=== PATIENT | male | born 1960 | race African-American/Black ===

== ENCOUNTER 2022-05-24 22:12 | Inpatient (IN) | payer MEDICAID ==
[~2022-05-24] VITALS: Ht 172.7 cm; Wt 81.9 kg
[2022-05-24] MEDS ORDERED: FUROSEMIDE 40MG/4ML VIAL IV ONE (22:30)
[2022-05-24] MEDS ORDERED: NITROGLYCERIN OINT 1GM/INCH UDPKT TD ONE (22:30)
[2022-05-24 22:56] LABS: BASOPHILS % 0.5 % (0.0-2.0); HEMATOCRIT. 32.9 % (42.0-52.0); HEMOGLOBIN. 11.3 g/dL (14.0-18.0); LYMPHOCYTES % 22.7 % (20.0-50.0); MEAN CORPUSCULAR HEMOGLOBIN 30.9 pg (28.0-32.0); MEAN CORPUSCULAR VOLUME 89.6 fL (80.0-94.0); MONOCYTES % 8.6 % (2.0-8.0); NEUTROPHILS % 65.2 % (40.0-76.0); PLATELET 230 x1000/uL (130-400); RED BLOOD CELL COUNT 3.67 mill/uL (4.7-6.1); RED CELL DISTRIBUTION WIDTH 15.2 % (11.6-14.6)
[2022-05-24 23:00] LABS: CHLORIDE 107 mEq/L (98-107)
[2022-05-25] MEDS ORDERED: ASPIRIN 325MG TABLET PO ONE (02:00)
[2022-05-25] MEDS ORDERED: ENOXAPARIN 80MG/0.8ML SYR SUBCUT ONE (02:00)
[2022-05-25] MEDS ORDERED: HYDROCODONE/ACETAMINOPHEN 7.5/325MG TABLET PO PRN (05:30)
[2022-05-25] MEDS ORDERED: ACETAMINOPHEN 325MG TABLET PO PRN ×2 (05:30)
[2022-05-25] MEDS ORDERED: IPRATROPIUM/ALBUTEROL 0.5-3(2.5)MG/3ML NEB HHN PRN (05:30)
[2022-05-25] MEDS ORDERED: ONDANSETRON HCL 4MG/2ML INJ IV PRN (05:30)
[2022-05-25] MEDS ORDERED: CLONIDINE 0.1MG TABLET PO PRN (05:30)
[2022-05-25] MEDS ORDERED: IPRATROPIUM/ALBUTEROL 0.5-3(2.5)MG/3ML NEB HHN SCH (06:15)
[2022-05-25] MEDS ORDERED: TICAGRELOR 90 MG TABLET PO SCH (09:00)
[2022-05-25] MEDS ORDERED: METOPROLOL TARTRATE 25MG TABLET PO SCH (09:00)
[2022-05-25 09:18] LABS: BG BASE EXCESS 3.5 mmol/L (-2.0-2.0); BG CARBOXYHEMOGLOBIN 2.6 % (0.5-1.5); BG DEOXYHEMOGLOBIN 0.9 % (0.0-5.0); BG FRACTION INSPIRED OXYGEN 40; BG HCO3 ACT 28.5 mmol/L (22.0-26.0); BG METHEMOGLOBIN 0.3 % (0.0-1.5); BG OXYGEN SATURATION 99.1 % (92.0-98.5); BG OXYHEMOGLOBIN 96.2 % (94.0-97.0); BG PCO2 44.6 mmHg (35.0-45.0); BG PH 7.423 (7.350-7.450); BG SAMPLE SITE RIGHT RADIAL; BG TOTAL HEMOGLOBIN 11.5 g/dL (12.0-18.0); BG VENT MODE NASAL CANNULA
[2022-05-25] MEDS: ASPIRIN 81MG TABLET PO SCH (09:33)
[2022-05-25] MEDS: FUROSEMIDE 40MG/4ML VIAL IVP SCH ×2 (09:33→17:00)
[2022-05-25] MEDS: LOSARTAN POTASSIUM 25 MG TABLET PO SCH (09:33)
[2022-05-25 10:24] LABS: CLARITY URINE CLEAR (CLEAR); COLOR URINE YELLOW (YELLOW); KETONES URINE NEGATIVE (NEGATIVE); LEUKOCYTE ESTERASE URINE NEGATIVE (NEGATIVE); NITRITE URINE NEGATIVE (NEGATIVE); OCCULT BLOOD URINE NEGATIVE (NEGATIVE); PH URINE 8.5 (4.5-8.0); PROTEIN URINE NEGATIVE (NEGATIVE)
[2022-05-25] MEDS: TICAGRELOR 90 MG TABLET PO SCH ×2 (10:28→17:00)
[2022-05-25 11:21] LABS: *AMPHETAMINES SCREEN URINE NEGATIVE (NEGATIVE); *BARBITURATES SCREEN URINE NEGATIVE (NEGATIVE); *BENZODIAZEPINES SCREEN URINE NEGATIVE (NEGATIVE); *COCAINE SCREEN URINE PRESUMTIVE POSITIVE (NEGATIVE); CANNABINOID URINE SCREEN NEGATIVE (NEGATIVE); METHADONE URINE SCREEN NEGATIVE (NEGATIVE); OPIATES URINE SCREEN NEGATIVE (NEGATIVE); PHENCYCLIDINE URINE SCREEN NEGATIVE (NEGATIVE)
[2022-05-25 12:22] LABS: CHLORIDE 108 mEq/L (98-107)
[2022-05-25] MEDS: METHYLPREDNISOLONE SOD SUCC 125 MG/2 ML VIAL IV SCH ×2 (15:07→22:42)
[2022-05-25] MEDS: FAMOTIDINE 20MG TABLET PO SCH (22:42)
[2022-05-25] MEDS: ATORVASTATIN CALCIUM 40MG TABLET PO SCH (22:42)
[2022-05-26] MEDS: METHYLPREDNISOLONE SOD SUCC 125 MG/2 ML VIAL IV SCH ×3 (06:58→22:00)
[2022-05-26 08:45] LABS: BG BASE EXCESS 5.7 mmol/L (-2.0-2.0); BG CARBOXYHEMOGLOBIN 0.4 % (0.5-1.5); BG DEOXYHEMOGLOBIN 2.7 % (0.0-5.0); BG METHEMOGLOBIN 0.3 % (0.0-1.5); BG OXYGEN SATURATION 97.3 % (92.0-98.5); BG OXYHEMOGLOBIN 96.6 % (94.0-97.0); BG PCO2 47.8 mmHg (35.0-45.0); BG PO2 99.5 mmHg (75.0-100.0); BG SAMPLE SITE RIGHT RADIAL; BG TOTAL HEMOGLOBIN 12.8 g/dL (12.0-18.0); BG VENT MODE NASAL CANNULA
[2022-05-26] MEDS: FUROSEMIDE 40MG/4ML VIAL IVP SCH ×2 (09:00→17:00)
[2022-05-26] MEDS: ASPIRIN 81MG TABLET PO SCH (09:00)
[2022-05-26] MEDS: TICAGRELOR 90 MG TABLET PO SCH ×2 (09:00→17:00)
[2022-05-26] MEDS: LOSARTAN POTASSIUM 25 MG TABLET PO SCH (09:00)
[2022-05-26] MEDS: ENOXAPARIN 40MG/0.4ML SYR SUBCUT SCH (09:00)
[2022-05-26 12:11] LABS: HEMATOCRIT. 37.7 % (42.0-52.0); HEMOGLOBIN. 12.6 g/dL (14.0-18.0); MEAN CORPUSCULAR HEMOGLOBIN 30.3 pg (28.0-32.0); MEAN CORPUSCULAR VOLUME 90.8 fL (80.0-94.0); MEAN PLATELET VOLUME 7.8 fl (7.4-10.4); PLATELET 245 x1000/uL (130-400); RED BLOOD CELL COUNT 4.16 mill/uL (4.7-6.1); RED CELL DISTRIBUTION WIDTH 15.7 % (11.6-14.6)
[2022-05-26 12:13] LABS: CHLORIDE 109 mEq/L (98-107)
[2022-05-26 12:29] LABS: T4 FREE 0.85 ng/dL (0.76-1.46)
[2022-05-26 13:21] LABS: PLATELET ESTIMATE NORMAL
[2022-05-26] MEDS: FAMOTIDINE 20MG TABLET PO SCH (21:00)
[2022-05-26] MEDS: ATORVASTATIN CALCIUM 40MG TABLET PO SCH (21:00)
[2022-05-27] MEDS ORDERED: NALOXONE HCL 0.4MG/ML VIAL IV PRN (01:15)
[2022-05-27 04:00] VITALS: BP 148/96
[2022-05-27] MEDS: METHYLPREDNISOLONE SOD SUCC 125 MG/2 ML VIAL IV SCH ×3 (06:28→20:50)
[2022-05-27] MEDS: ENOXAPARIN 40MG/0.4ML SYR SUBCUT SCH (10:08)
[2022-05-27] MEDS: FUROSEMIDE 40MG/4ML VIAL IVP SCH ×2 (10:08→16:50)
[2022-05-27] MEDS: LOSARTAN POTASSIUM 25 MG TABLET PO SCH (10:09)
[2022-05-27] MEDS: ASPIRIN 81MG TABLET PO SCH (10:09)
[2022-05-27] MEDS: TICAGRELOR 90 MG TABLET PO SCH ×2 (10:09→16:50)
[2022-05-27 13:15] LABS: BG BASE EXCESS 6.9 mmol/L (-2.0-2.0); BG CARBOXYHEMOGLOBIN 0.3 % (0.5-1.5); BG DEOXYHEMOGLOBIN 4.5 % (0.0-5.0); BG FRACTION INSPIRED OXYGEN 21; BG HCO3 ACT 29.9 mmol/L (22.0-26.0); BG METHEMOGLOBIN 0.1 % (0.0-1.5); BG OXYGEN SATURATION 95.5 % (92.0-98.5); BG OXYHEMOGLOBIN 95.1 % (94.0-97.0); BG PCO2 36.9 mmHg (35.0-45.0); BG PH 7.527 (7.350-7.450); BG PO2 74.2 mmHg (75.0-100.0); BG SAMPLE SITE RIGHT RADIAL; BG TOTAL HEMOGLOBIN 12.3 g/dL (12.0-18.0); BG VENT MODE ROOM AIR
[2022-05-27 14:00] VITALS: BP 148/97
[2022-05-27 16:00] VITALS: BP 137/61
[2022-05-27 16:45] LABS: BASOPHILS % 0.2 % (0.0-2.0); EOSINOPHILS % 0.6 % (0.0-5.0); HEMATOCRIT. 34.6 % (42.0-52.0); HEMOGLOBIN. 11.7 g/dL (14.0-18.0); LYMPHOCYTES % 7.2 % (20.0-50.0); MEAN CORPUSCULAR HEMOGLOBIN 30.8 pg (28.0-32.0); MEAN CORPUSCULAR VOLUME 91.3 fL (80.0-94.0); MEAN PLATELET VOLUME 8.1 fl (7.4-10.4); MONOCYTES % 7.4 % (2.0-8.0); NEUTROPHILS % 84.6 % (40.0-76.0); PLATELET 175 x1000/uL (130-400); RED BLOOD CELL COUNT 3.79 mill/uL (4.7-6.1); RED CELL DISTRIBUTION WIDTH 15.7 % (11.6-14.6)
[2022-05-27 16:48] LABS: CHLORIDE 108 mEq/L (98-107)
[2022-05-27 18:00] VITALS: BP 126/73
[2022-05-27 20:00] VITALS: BP 146/72
[2022-05-27] MEDS: ATORVASTATIN CALCIUM 40MG TABLET PO SCH (20:51)
[2022-05-27] MEDS: FAMOTIDINE 20MG TABLET PO SCH (20:51)
[2022-05-27 22:00] VITALS: BP 146/66
[2022-05-28] VITALS (7 sets, daily range): BP systolic 128–169; BP diastolic 64–101
[2022-05-28] MEDS: METHYLPREDNISOLONE SOD SUCC 125 MG/2 ML VIAL IV SCH (07:00)
[2022-05-28 08:03] LABS: HEMATOCRIT. 41.8 % (42.0-52.0); LYMPHOCYTES % 7.9 % (20.0-50.0); MEAN CORPUSCULAR HEMOGLOBIN 30.1 pg (28.0-32.0); MEAN CORPUSCULAR VOLUME 89.8 fL (80.0-94.0); MEAN PLATELET VOLUME 7.8 fl (7.4-10.4); MONOCYTES % 2.6 % (2.0-8.0); NEUTROPHILS % 89.5 % (40.0-76.0); PLATELET 246 x1000/uL (130-400); RED BLOOD CELL COUNT 4.66 mill/uL (4.7-6.1); RED CELL DISTRIBUTION WIDTH 15.7 % (11.6-14.6)
[2022-05-28 08:25] LABS: CHLORIDE 104 mEq/L (98-107)
[2022-05-28] MEDS: LOSARTAN POTASSIUM 25 MG TABLET PO SCH (08:43)
[2022-05-28] MEDS: ENOXAPARIN 40MG/0.4ML SYR SUBCUT SCH (08:43)
[2022-05-28] MEDS: FUROSEMIDE 40MG/4ML VIAL IVP SCH (08:43)
[2022-05-28] MEDS: TICAGRELOR 90 MG TABLET PO SCH (08:44)
[2022-05-28] MEDS: ASPIRIN 81MG TABLET PO SCH (08:44)
[2022-05-28 13:59] LABS: BG BASE EXCESS 5.7 mmol/L (-2.0-2.0); BG CARBOXYHEMOGLOBIN 0.3 % (0.5-1.5); BG FRACTION INSPIRED OXYGEN 21; BG HCO3 ACT 29.5 mmol/L (22.0-26.0); BG METHEMOGLOBIN 0.3 % (0.0-1.5); BG OXYHEMOGLOBIN 95.4 % (94.0-97.0); BG PCO2 39.9 mmHg (35.0-45.0); BG PH 7.487 (7.350-7.450); BG PO2 80.8 mmHg (75.0-100.0); BG SAMPLE SITE RIGHT RADIAL; BG TOTAL HEMOGLOBIN 14.5 g/dL (12.0-18.0); BG VENT MODE ROOM AIR
== END 2022-05-28 14:45 | disposition left against medical advice (07) | DRG 816 ==
LOC: ER 22:12 → MICUSO 05-25 01:52 → EDBEDREQSVC 05-25 08:03 → 5EST 05-27 01:04
PROVIDERS: ADMIT Hospitalist; ATTEND Hospitalist
PROC: 5A09357 Assistance with Respiratory Ventilation, Less than 24 Consecutive Hours, Continuous Positive Airway Pressure (ICD-10-PCS; principal; 2022-05-25)
DX: T40.5X1A Poisoning by cocaine, accidental (unintentional), initial encounter (principal); J96.01 Acute respiratory failure with hypoxia; I50.43 Acute on chronic combined systolic (congestive) and diastolic (congestive) heart failure; E43 Unspecified severe protein-calorie malnutrition; I21.A1 Myocardial infarction type 2; C22.9 Malignant neoplasm of liver, not specified as primary or secondary; J68.0 Bronchitis and pneumonitis due to chemicals, gases, fumes and vapors; Z53.29 Procedure and treatment not carried out because of patient's decision for other reasons; I11.0 Hypertensive heart disease with heart failure; E03.9 Hypothyroidism, unspecified; E78.5 Hyperlipidemia, unspecified; Z20.822 Contact with and (suspected) exposure to COVID-19; I25.10 Atherosclerotic heart disease of native coronary artery without angina pectoris; F17.210 Nicotine dependence, cigarettes, uncomplicated; Z91.14 Patient's other noncompliance with medication regimen; Z91.199 Patient's noncompliance with other medical treatment and regimen due to unspecified reason; Z68.27 Body mass index [BMI] 27.0-27.9, adult; Z98.61 Coronary angioplasty status; Z79.02 Long term (current) use of antithrombotics/antiplatelets; Z79.899 Other long term (current) drug therapy; Y92.89 Other specified places as the place of occurrence of the external cause
CPT/HCPCS: 36415; 36600; 71045; 80048; 80053; 80305; 81003; 82375; 82805; 83605; 83735; 83880; 84439; 84443; 84484; 85025; 87426; 87804; 93005; 93306; 93970; 94660; 99291; C9803; J1650; J1940; J2930; J8499

== ENCOUNTER 2022-07-21 05:23 | Inpatient (IN) | payer MEDICAID ==
[~2022-07-21] VITALS: Ht 167.6 cm; Wt 83.5 kg
[2022-07-21] MEDS ORDERED: ASPIRIN 81MG TABLET PO ONE (05:45)
[2022-07-21 06:47] LABS: BASOPHILS % 0.5 % (0.0-2.0); EOSINOPHILS % 1.4 % (0.0-5.0); HEMATOCRIT. 37.6 % (42.0-52.0); HEMOGLOBIN. 12.5 g/dL (14.0-18.0); LYMPHOCYTES % 23.5 % (20.0-50.0); MEAN CORPUSCULAR HEMOGLOBIN 31.1 pg (28.0-32.0); MEAN CORPUSCULAR VOLUME 93.8 fL (80.0-94.0); MEAN PLATELET VOLUME 8.4 fl (7.4-10.4); MONOCYTES % 10.2 % (2.0-8.0); NEUTROPHILS % 64.4 % (40.0-76.0); PLATELET 184 x1000/uL (130-400); RED BLOOD CELL COUNT 4.01 mill/uL (4.7-6.1); RED CELL DISTRIBUTION WIDTH 16.7 % (11.6-14.6)
[2022-07-21 06:50] LABS: CHLORIDE 104 mEq/L (98-107)
[2022-07-21 07:02] LABS: ETHANOL BLOOD < 10 mg/dL
[2022-07-21] MEDS ORDERED: FUROSEMIDE 40MG/4ML VIAL IVP ONE (08:00)
[2022-07-21] MEDS ORDERED: FUROSEMIDE 40MG/4ML VIAL IVP NR (10:15)
[2022-07-21] MEDS ORDERED: ASPIRIN 81MG TABLET PO NR (10:15)
[2022-07-21] MEDS ORDERED: ACETAMINOPHEN 325MG TABLET PO PRN ×2 (10:30)
[2022-07-21] MEDS ORDERED: DIPHENHYDRAMINE 50MG/ML VIAL IV PRN (10:30)
[2022-07-21] MEDS ORDERED: IPRATROPIUM/ALBUTEROL 0.5-3(2.5)MG/3ML NEB HHN PRN (10:30)
[2022-07-21] MEDS ORDERED: MAGNESIUM HYDROXIDE 400MG/5ML 30ML UDC PO PRN (10:30)
[2022-07-21] MEDS ORDERED: ONDANSETRON HCL 4MG/2ML INJ IV PRN (10:30)
[2022-07-21] MEDS ORDERED: CLONIDINE 0.1MG TABLET PO PRN (10:30)
[2022-07-21] MEDS ORDERED: MAGNESIUM/ALUMINUM HYDROXIDE/SIMETHICONE 30ML UDC PO PRN (10:30)
[2022-07-21] MEDS ORDERED: ZOLPIDEM TARTRATE 5MG TABLET PO PRN (10:30)
[2022-07-21] MEDS: FAMOTIDINE 20MG TABLET PO SCH ×2 (11:00→17:00)
[2022-07-21] MEDS: ENOXAPARIN 30MG/0.3ML SYR SUBCUT SCH ×2 (11:00→23:00)
[2022-07-21] MEDS: SODIUM CHLORIDE 0.9% INJ 3ML FLUSH IVF SCH ×2 (14:00→22:09)
[2022-07-21 15:50] LABS: *AMPHETAMINES SCREEN URINE NEGATIVE (NEGATIVE); *BARBITURATES SCREEN URINE NEGATIVE (NEGATIVE); *BENZODIAZEPINES SCREEN URINE NEGATIVE (NEGATIVE); *COCAINE SCREEN URINE PRESUMTIVE POSITIVE (NEGATIVE); CANNABINOID URINE SCREEN NEGATIVE (NEGATIVE); METHADONE URINE SCREEN NEGATIVE (NEGATIVE); OPIATES URINE SCREEN NEGATIVE (NEGATIVE); PHENCYCLIDINE URINE SCREEN NEGATIVE (NEGATIVE)
[2022-07-21] MEDS: BUDESONIDE 0.5MG/2ML NEB HHN SCH (15:57)
[2022-07-21] MEDS: TICAGRELOR 90 MG TABLET PO SCH (17:00)
[2022-07-21] MEDS: FUROSEMIDE 40MG/4ML VIAL IVP SCH (17:00)
[2022-07-21] MEDS: ATORVASTATIN CALCIUM 40MG TABLET PO SCH (21:30)
[2022-07-21] MEDS: METOPROLOL TARTRATE 25MG TABLET PO SCH (21:30)
[2022-07-21 23:17] VITALS: BP 147/73
[2022-07-22] MEDS: SODIUM CHLORIDE 0.9% INJ 3ML FLUSH IVF SCH ×3 (05:01→21:02)
[2022-07-22 08:15] VITALS: BP 124/76
[2022-07-22 08:16] LABS: CHLORIDE 108 mEq/L (98-107)
[2022-07-22] MEDS: FAMOTIDINE 20MG TABLET PO SCH ×2 (09:12→18:01)
[2022-07-22] MEDS: LOSARTAN POTASSIUM 25 MG TABLET PO SCH (09:12)
[2022-07-22] MEDS: ASPIRIN 81MG EC TABLET PO SCH (09:12)
[2022-07-22] MEDS: TICAGRELOR 90 MG TABLET PO SCH ×2 (09:12→18:01)
[2022-07-22] MEDS: METOPROLOL TARTRATE 25MG TABLET PO SCH ×2 (09:13→21:00)
[2022-07-22] MEDS: BUDESONIDE 0.5MG/2ML NEB HHN SCH ×2 (09:39→21:09)
[2022-07-22] MEDS: FUROSEMIDE 40MG/4ML VIAL IVP SCH ×2 (09:55→18:01)
[2022-07-22] MEDS: ENOXAPARIN 30MG/0.3ML SYR SUBCUT SCH ×2 (11:50→23:31)
[2022-07-22 12:00] VITALS: BP 136/68
[2022-07-22] MEDS ORDERED: METOLAZONE 10MG TABLET PO NR (13:30)
[2022-07-22] MEDS ORDERED: IPRATROPIUM BROMIDE (0.02%) 0.5MG/2.5ML NEB HHN PRN (15:00)
[2022-07-22] MEDS ORDERED: HYDROCODONE/ACETAMINOPHEN 5/325MG TABLET PO PRN (15:45)
[2022-07-22 16:00] VITALS: BP 127/63
[2022-07-22] MEDS ORDERED: NALOXONE HCL 0.4MG/ML VIAL IV PRN (17:00)
[2022-07-22 20:00] VITALS: BP 125/62
[2022-07-22] MEDS: ATORVASTATIN CALCIUM 40MG TABLET PO SCH (20:59)
[2022-07-23] VITALS: BP 127/64
[2022-07-23 04:00] VITALS: BP_SYST 127; BP_SYST 130; BP_DIAS 64; BP_DIAS 72
[2022-07-23] MEDS: SODIUM CHLORIDE 0.9% INJ 3ML FLUSH IVF SCH ×3 (05:49→22:00)
[2022-07-23 07:26] LABS: CHLORIDE 99 mEq/L (98-107)
[2022-07-23 07:42] LABS: PHOSPHORUS 4.8 mg/dL (2.5-4.9)
[2022-07-23 08:00] VITALS: BP 133/41
[2022-07-23] MEDS ORDERED: POTASSIUM CHLORIDE 20MEQ TABLET SR PO NR (08:15)
[2022-07-23] MEDS: LOSARTAN POTASSIUM 25 MG TABLET PO SCH (09:24)
[2022-07-23] MEDS: METOPROLOL TARTRATE 25MG TABLET PO SCH ×2 (09:24→20:48)
[2022-07-23] MEDS: FAMOTIDINE 20MG TABLET PO SCH ×2 (09:24→17:31)
[2022-07-23] MEDS: ASPIRIN 81MG EC TABLET PO SCH (09:24)
[2022-07-23] MEDS: TICAGRELOR 90 MG TABLET PO SCH ×2 (09:25→17:31)
[2022-07-23] MEDS: FUROSEMIDE 40MG/4ML VIAL IVP SCH ×2 (09:25→17:31)
[2022-07-23] MEDS: ENOXAPARIN 30MG/0.3ML SYR SUBCUT SCH ×2 (11:56→23:00)
[2022-07-23 12:00] VITALS: BP 110/72
[2022-07-23] MEDS ORDERED: MAGNESIUM 2 G PREMIX 50 ML IV NR (12:00)
[2022-07-23 13:25] LABS: BG CARBOXYHEMOGLOBIN 0.5 % (0.5-1.5); BG DEOXYHEMOGLOBIN 8.1 % (0.0-5.0); BG FRACTION INSPIRED OXYGEN 21; BG HCO3 ACT 34.4 mmol/L (22.0-26.0); BG METHEMOGLOBIN 0.3 % (0.0-1.5); BG OXYGEN SATURATION 91.8 % (92.0-98.5); BG OXYHEMOGLOBIN 91.1 % (94.0-97.0); BG PCO2 44.5 mmHg (35.0-45.0); BG PH 7.506 (7.350-7.450); BG PO2 61.2 mmHg (75.0-100.0); BG SAMPLE SITE RIGHT RADIAL; BG TOTAL HEMOGLOBIN 15.1 g/dL (12.0-18.0); BG VENT MODE ROOM AIR
[2022-07-23] MEDS: BUDESONIDE 0.5MG/2ML NEB HHN SCH ×2 (13:43→20:02)
[2022-07-23] MEDS: ALBUTEROL (0.083%) 2.5MG/3ML NEB HHN PRN (13:44)
[2022-07-23 16:00] VITALS: BP 102/68
[2022-07-23 20:00] VITALS: BP 97/58
[2022-07-23] MEDS: ATORVASTATIN CALCIUM 40MG TABLET PO SCH (20:47)
[2022-07-23] MEDS: TRAMADOL 50MG TABLET PO PRN (20:48)
[2022-07-24] VITALS: BP 134/70
[2022-07-24] MEDS: TRAMADOL 50MG TABLET PO PRN (03:02)
[2022-07-24 04:00] VITALS: BP 99/71
[2022-07-24] MEDS: SODIUM CHLORIDE 0.9% INJ 3ML FLUSH IVF SCH ×2 (05:50→13:04)
[2022-07-24 08:00] VITALS: BP 109/48
[2022-07-24] MEDS: METOPROLOL TARTRATE 25MG TABLET PO SCH (09:00)
[2022-07-24] MEDS: LOSARTAN POTASSIUM 25 MG TABLET PO SCH (09:00)
[2022-07-24] MEDS: BUDESONIDE 0.5MG/2ML NEB HHN SCH (09:20)
[2022-07-24] MEDS: ALBUTEROL (0.083%) 2.5MG/3ML NEB HHN PRN (09:21)
[2022-07-24] MEDS: ASPIRIN 81MG EC TABLET PO SCH (09:26)
[2022-07-24] MEDS: TICAGRELOR 90 MG TABLET PO SCH (09:26)
[2022-07-24] MEDS: FAMOTIDINE 20MG TABLET PO SCH (09:26)
[2022-07-24] MEDS: FUROSEMIDE 40MG/4ML VIAL IVP SCH (09:27)
[2022-07-24] MEDS: ENOXAPARIN 30MG/0.3ML SYR SUBCUT SCH (10:11)
[2022-07-24 12:00] VITALS: BP 139/67
[2022-07-24] MEDS ORDERED: FURO-152 MT (13:16)
[2022-07-24] MEDS ORDERED: TOPUD PO (13:16)
[2022-07-24] MEDS ORDERED: METO-385 MT (13:16)
[2022-07-24] MEDS ORDERED: TICA90TA PO (13:16)
[2022-07-24] MEDS ORDERED: ALBU6.7H3 INH (13:16)
[2022-07-24] MEDS ORDERED: LOSA25TA3 PO (13:16)
[2022-07-24] MEDS ORDERED: LIP40 PO (13:16)
[2022-07-24] MEDS ORDERED: ASPI-1406 PO (13:16)
[2022-07-24 13:30] VITALS: BP 139/67
== END 2022-07-24 15:33 | disposition home or self-care (01) | DRG 194 ==
LOC: ER 05:49 → MICUSO 10:35 → 7EST 07-22 00:38
PROVIDERS: ADMIT Internal Medicine; ATTEND Internal Medicine
DX: I11.0 Hypertensive heart disease with heart failure (principal); J96.01 Acute respiratory failure with hypoxia; E44.1 Mild protein-calorie malnutrition; E11.9 Type 2 diabetes mellitus without complications; I50.23 Acute on chronic systolic (congestive) heart failure; J44.9 Chronic obstructive pulmonary disease, unspecified; R07.89 Other chest pain; Z20.822 Contact with and (suspected) exposure to COVID-19; E87.6 Hypokalemia; I25.10 Atherosclerotic heart disease of native coronary artery without angina pectoris; F14.10 Cocaine abuse, uncomplicated; F17.200 Nicotine dependence, unspecified, uncomplicated; Z85.05 Personal history of malignant neoplasm of liver; Z59.00 Homelessness unspecified; Z59.01 Sheltered homelessness; Z79.02 Long term (current) use of antithrombotics/antiplatelets; Z79.899 Other long term (current) drug therapy
CPT/HCPCS: 36415; 36600; 71045; 80048; 80053; 80305; 80320; 82375; 82805; 83036; 83735; 83880; 84100; 84484; 85025; 87426; 93005; 94640; 97161; 99291; C9803; J1650; J1940; J3475; J7626; G0480; J8499